=== PATIENT | male | born 1955 | race African-American/Black ===

== ENCOUNTER 2016-07-11 23:58 | Emergency (ER) | payer MEDICARE ==
[2016-07-12 00:21] VITALS: TEMP 98.6
[2016-07-12] MEDS ORDERED: SODIUM CHLORIDE 0.9% 1,000 ML IV ONE (00:57)
[2016-07-12 01:18] LABS: Basophils % (A) 0 %; CH 30.1; CHCM 33.2; Eosinophils # (A) 0.2 k/uL (0-0.7); Eosinophils % (A) 2 %; HDW 2.71; HGB 13.2 gm/dL (13.0-17.5); Luc # (Auto) 0.17; Luc % (Auto) 2; Lymphocytes # (A) 1.8 k/uL (1.0-4.8); Lymphocytes % (A) 19 %; MCH 30.9 pg (25.0-35.0); MCHC 33.9 g/dL (31.0-37.0); MCV 91.1 fL (80.0-100.0); Mean Platelet Volume 7.7; Monocytes # (A) 0.8 k/uL (0-1.0); Monocytes % (A) 9 %; Neutrophils # (A) 6.5 k/uL (1.3-7.7); Neutrophils % (A) 68 %; RBC 4.29 m/uL (4.30-5.90); RDW 13.2 % (11.5-15.5); WBC 9.5 k/uL (3.8-10.6); WBC (Perox) 9.42
[2016-07-12] MEDS ORDERED: PHENYTOIN SODIUM INJ 50 MG/ML 2 ML VIAL IVP STA (01:19)
[2016-07-12 01:27] LABS: ALT 25 U/L (21-72); AST 16 U/L (17-59); Acetaminophen <10.0 ug/mL; Alcohol <10 mg/dL; Alkaline Phosphatase 77 U/L (38-126); Anion Gap 7 mmol/L; Blood Urea Nitrogen 14 mg/dL (9-20); Calcium 9.3 mg/dL (8.4-10.2); Carbon Dioxide 26 mmol/L (22-30); Chloride 107 mmol/L (98-107); Glucose 105 mg/dL (74-99); Non-African American GFR(MDRD) >60 (>60 ml/min/1.73 sqM); Potassium 4.1 mmol/L (3.5-5.1); Salicylate <1.0 mg/dL; Sodium 140 mmol/L (137-145); Total Bilirubin 0.3 mg/dL (0.2-1.3); Total Protein 6.6 g/dL (6.3-8.2)
--- NOTE | 2016-07-12 02:02 | ED ---
Seizure HPI - General Chief Complaint: Seizure Stated Complaint: Seizure Time Seen by Provider: 07/12/16 00:49 Source: patient, family, RN notes reviewed Mode of arrival: wheelchair Limitations: no limitations - History of Present Illness Initial Comments: Patient is 61-year-old male presents to the emergency room for evaluation of seizure. Patient does state that he had a history of recurrent seizures. Patient states his last seizure was 2 years ago. Patient states he used to follow-up with Dr. Antunez, his neurologist. Patient states that he stopped taking his medications because he was no longer was having seizures. Patient states used to be on Keppra and Tegretol. Patient states that he hasn't seen his neurologist in about 2 years. Patient's states around 11:00 last evening she woke up to patient seizing in the bed. His states that the seizure stopped and then he had a second seizure immediately following. Patient 's states that the 2 seizures lasted a total of 3 minutes. Patient states he does not remember the seizures. Patient's states he was very confused afterwards. Patient denies any current headache, dizziness, changes in vision, changes in hearing, chest pain, shortness of breath, abdominal pain, nausea, vomiting, numbness or tingling extremities, weakness. Patient denies recent illnesses. Patient denies cough, fevers or chills. Patient's does state that patient stares at a computer screen multiple hours during the day. Patient 's states that he was told a few years ago to not stare the computer for long time which could cause a seizure. Patient denies alcohol use or illicit drug use. Patient denies being on any medications. - Related Data Previous Rx's Medication Instructions Recorded levETIRAcetam [Keppra] 500 mg PO BID 14 Days 07/12/16 Allergies Allergy/AdvReac Type Severity Reaction Status Date / Time No Known Allergies Allergy Verified 07/12/16 00:21 Review of Systems ROS Statement: Those systems with pertinent positive or pertinent negative responses have been documented in the HPI. ROS Other: All systems not noted in ROS Statement are negative. Past Medical History Past Medical History: Osteoarthritis (OA), Seizure Disorder Additional Past Medical History / Comment(s): ARTHRITIS History of Any Multi-Drug Resistant Organisms: None Reported Past Surgical History: Appendectomy, Orthopedic Surgery Additional Past Surgical History / Comment(s): 2 DISC BACK SURGERIES, CARPAL TUNNEL SRUGERY Past Anesthesia/Blood Transfusion Reactions: No Reported Reaction Past Psychological History: No Psychological Hx Reported Smoking Status: Current every day smoker Past Alcohol Use History: None Reported Past Drug Use History: None Reported Additional Drug Use History / Comment(s): PT STATES SMOKES 1.2 PACK A DAY - Past Family History Mother Additional Family Medical History / Comment(s): PACEMAKER General Exam - General Exam Comments Initial Comments: Sitting in exam room, no acute distress. Limitations: no limitations General appearance: alert, in no apparent distress Head exam: Present: atraumatic, normocephalic, normal inspection Eye exam: Present: normal appearance, PERRL, EOMI Pupils: Present: normal accommodation ENT exam: Present: normal exam Neck exam: Present: normal inspection Respiratory exam: Present: normal lung sounds bilaterally. Absent: respiratory distress Cardiovascular Exam: Present: regular rate, normal rhythm, normal heart sounds Extremities exam: Present: normal inspection Back exam: Present: normal inspection Neurological exam: Present: alert, oriented X3, CN II-XII intact, normal gait Expanded Patient oriented to: Present: person, place, time Speech: Present: fluid speech Cranial nerves: EOM's Intact: Normal, Facial Sensation: Normal Sensory exam: Upper Extremity Light Touch: Normal, Lower Extremity Light Touch: Normal Motor strength exam: RUE: 5, LUE: 5, RLE: 5, LLE: 5 Eye Response: (4) open spontaneously Motor Response: (6) obeys commands Verbal Response: (5) oriented Psychiatric exam: Present: normal affect, normal mood Skin exam: Present: warm, dry, intact, normal color. Absent: rash Course Vital Signs 07/12/16 00:13 Temperature 98.6 F Pulse Rate 90 Respiratory 16 Rate Blood Pressure 104/63 O2 Sat by Pulse 99 Oximetry Medical Decision Making - Medical Decision Making Patient is a 61-year-old male presents emergency room for evaluation of seizure. Patient did have a history of seizures but hasn't had a seizure in 2 years. Patient states he's been Brought and Tegretol. Patient was given Keppra in the emergency room. Patient had no seizures while he was here. Labs show normal concerning or abnormal findings. Will send patient home with Keppra and advised him to follow-up with his neurologist. Patient advised to not drive until follow-up with neurologist. Patient states he understands everything that was discussed with him. Return parameters discussed. Case discussed with Dr. Alston. - Lab Data Result diagrams: 07/12/16 01:00 07/12/16 01:00 Lab Results 07/12/16 07/12/16 07/12/16 Range/Units 01:00 01:00 02:52 WBC 9.5 (3.8-10.6) k/uL RBC 4.29 L (4.30-5.90) m/uL Hgb 13.2 (13.0-17.5) gm/dL Hct 39.0 (39.0-53.0) % MCV 91.1 (80.0-100.0) fL MCH 30.9 (25.0-35.0) pg MCHC 33.9 (31.0-37.0) g/dL RDW 13.2 (11.5-15.5) % Plt Count 147 L (150-450) k/uL Neutrophils % 68 % Lymphocytes % 19 % Monocytes % 9 % Eosinophils % 2 % Basophils % 0 % Neutrophils # 6.5 (1.3-7.7) k/uL Lymphocytes # 1.8 (1.0-4.8) k/uL Monocytes # 0.8 (0-1.0) k/uL Eosinophils # 0.2 (0-0.7) k/uL Basophils # 0.0 (0-0.2) k/uL Sodium 140 (137-145) mmol/L Potassium 4.1 (3.5-5.1) mmol/L Chloride 107 (98-107) mmol/L Carbon Dioxide 26 (22-30) mmol/L Anion Gap 7 mmol/L BUN 14 (9-20) mg/dL Creatinine 1.10 (0.66-1.25) mg/dL Est GFR (MDRD) Af Amer >60 (>60 ml/min/1.73 sqM) Est GFR (MDRD) Non-Af >60 (>60 ml/min/1.73 sqM) Glucose 105 H (74-99) mg/dL Calcium 9.3 (8.4-10.2) mg/dL Total Bilirubin 0.3 (0.2-1.3) mg/dL AST 16 L (17-59) U/L ALT 25 (21-72) U/L Alkaline Phosphatase 77 (38-126) U/L Total Protein 6.6 (6.3-8.2) g/dL Albumin 3.8 (3.5-5.0) g/dL Urine Color Light Yellow Urine Appearance Clear (Clear) Urine pH 6.5 (5.0-8.0) Ur Specific [place] 1.009 (1.001-1.035) Urine Protein Negative (Negative) Urine Glucose (UA) Negative (Negative) Urine Ketones Negative (Negative) Urine Blood Negative (Negative) Urine Nitrite Negative (Negative) Urine Bilirubin Negative (Negative) Urine Urobilinogen 2.0 (<2.0) mg/dL Ur Leukocyte Esterase Negative (Negative) Salicylates <1.0 mg/dL Urine Opiates Screen Not Detected (NotDetected) Ur Oxycodone Screen Not Detected (NotDetected) Urine Methadone Screen Not Detected (NotDetected) Ur Propoxyphene Screen Not Detected (NotDetected) Acetaminophen <10.0 ug/mL Ur Barbiturates Screen Not Detected (NotDetected) U Tricyclic Antidepress Not Detected (NotDetected) Ur Phencyclidine Scrn Not Detected (NotDetected) Ur Amphetamines Screen Not Detected (NotDetected) U Methamphetamines Scrn Not Detected (NotDetected) U Benzodiazepines Scrn Not Detected (NotDetected) Urine Cocaine Screen Not Detected (NotDetected) U Marijuana (THC) Screen Not Detected (NotDetected) Serum Alcohol <10 mg/dL 07/12/16 02:16 Normal sinus rhythm, ventricular rate 91 bpm, TX interval 164 ms, QRS duration 90 ms, QT/QTC 382/469 ms Disposition Clinical Impression: Seizure Disposition: HOME SELF-CARE Condition: Good Instructions: Recurrent Seizures in Adults (ED) Additional Instructions: Take Keppra as directed. Please follow-up with primary care provider or neurologist in 24-48 hours. If any new symptom arises or symptoms worsen, return to ER as soon as possible. Prescriptions: levETIRAcetam [Keppra] 500 mg PO BID 14 Days Referrals: Promise Dumas MD [Primary Care Provider] - 1-2 days Tamie Antunez MD [STAFF PHYSICIAN] - 1-2 days Time of Disposition: 03:25
[2016-07-12 03:11] LABS: Appearance,Urine Clear (Clear); Bilirubin,Urine Negative (Negative); Glucose,Urine (UA) Negative (Negative); Ketones,Urine Negative (Negative); Leukocyte Esterase,Urine Negative (Negative); Nitrite,Urine Negative (Negative); PH, Urine 6.5 (5.0-8.0); Protein,Urine Negative (Negative); Specific Gravity,Urine 1.009 (1.001-1.035); UA Billing (MACRO vs. MICRO) CHEM
[2016-07-12 03:39] VITALS: BP 110/68; PULSE 67; RESP 18
== END 2016-07-12 03:38 | disposition home or self-care (01) ==
LOC: EC 23:58
DX: G40.909 Epilepsy, unspecified, not intractable, without status epilepticus (principal); Z79.899 Other long term (current) drug therapy
CPT/HCPCS: 99284; 96374; 36415; 93005; 80053; 85025; 81003; 80306; 83520 ×2; 80320; J1165

== ENCOUNTER 2016-08-06 00:42 | Emergency (ER) | payer MEDICARE ==
[2016-08-06 00:56] VITALS: RESP 18; TEMP 98.7
[2016-08-06] MEDS ORDERED: levETIRAcetam 500 MG TAB PO STA (01:02)
[2016-08-06] MEDS ORDERED: LORazepam 2 MG/ML SYRINGE IV STA (01:03)
--- NOTE | 2016-08-06 01:04 | ED ---
General Adult HPI - General Chief complaint: Seizure Stated complaint: Seizures Time Seen by Provider: 08/06/16 00:58 Source: patient, EMS, RN notes reviewed Mode of arrival: EMS Limitations: no limitations - History of Present Illness Initial comments: patient is a pleasant 61-year-old male presenting to the emergency Department with seizure. Patient has a seizure history. Patient was seizure free for 2 years and stopped his medication. Patient had a seizure around a month ago and restarted the medication. Patient discontinued this again around 3 days ago. Patient had 2 seizures today each lasting a couple of minutes. Patient is symptom-free at this time. No injury. No recent illness.seizure was generalized. - Related Data Previous Rx's Medication Instructions Recorded levETIRAcetam [Keppra] 500 mg PO BID 14 Days 07/12/16 Allergies Allergy/AdvReac Type Severity Reaction Status Date / Time No Known Allergies Allergy Verified 08/06/16 00:57 Review of Systems ROS Statement: Those systems with pertinent positive or pertinent negative responses have been documented in the HPI. ROS Other: All systems not noted in ROS Statement are negative. Constitutional: Denies: fever Eyes: Denies: eye pain ENT: Denies: ear pain Respiratory: Denies: cough, dyspnea Cardiovascular: Denies: chest pain Endocrine: Denies: fatigue Gastrointestinal: Denies: abdominal pain Genitourinary: Denies: dysuria Musculoskeletal: Denies: back pain Skin: Denies: rash Neurological: Denies: headache Past Medical History Past Medical History: Osteoarthritis (OA), Seizure Disorder Additional Past Medical History / Comment(s): ARTHRITIS History of Any Multi-Drug Resistant Organisms: None Reported Past Surgical History: Appendectomy Additional Past Surgical History / Comment(s): 2 DISC BACK SURGERIES, CARPAL TUNNEL SRUGERY Past Anesthesia/Blood Transfusion Reactions: No Reported Reaction Past Psychological History: No Psychological Hx Reported Smoking Status: Current every day smoker Past Alcohol Use History: None Reported Past Drug Use History: None Reported Additional Drug Use History / Comment(s): PT STATES SMOKES 1.2 PACK A DAY - Past Family History Mother Additional Family Medical History / Comment(s): PACEMAKER General Exam Limitations: no limitations General appearance: alert, in no apparent distress Head exam: Present: atraumatic Eye exam: Present: normal appearance, PERRL, EOMI. Absent: nystagmus ENT exam: Present: normal oropharynx Neck exam: Present: normal inspection. Absent: tenderness Respiratory exam: Present: normal lung sounds bilaterally Cardiovascular Exam: Present: regular rate, normal rhythm GI/Abdominal exam: Present: soft. Absent: tenderness Extremities exam: Present: normal inspection, full ROM Neurological exam: Present: alert, oriented X3, CN II-XII intact. Absent: motor sensory deficit Expanded Cranial nerves: EOM's Intact: Normal Motor strength exam: RUE: 5, LUE: 5, RLE: 5, LLE: 5 Eye Response: (4) open spontaneously Motor Response: (6) obeys commands Verbal Response: (5) oriented Psychiatric exam: Present: normal affect, normal mood Skin exam: Present: normal color Course Vital Signs 08/06/16 00:45 Temperature 98.7 F Pulse Rate 80 Respiratory 18 Rate Blood Pressure 107/70 O2 Sat by Pulse 100 Oximetry Medical Decision Making - Medical Decision Making Patient resting comfortably in bed. Patient remained symptom-free. Patient comfortable with discharge home. Patient and family updated on results and need for follow-up. Also updated on need to continue taking Keppra without interruption.patient states he does have Keppra at home. - Lab Data Result diagrams: 08/06/16 00:48 08/06/16 00:48 Lab Results 08/06/16 08/06/16 Range/Units 00:48 00:48 WBC 10.7 H (3.8-10.6) k/uL RBC 4.36 (4.30-5.90) m/uL Hgb 13.0 (13.0-17.5) gm/dL Hct 41.0 (39.0-53.0) % MCV 94.1 (80.0-100.0) fL MCH 29.8 (25.0-35.0) pg MCHC 31.7 (31.0-37.0) g/dL RDW 13.2 (11.5-15.5) % Plt Count 138 L (150-450) k/uL Neutrophils % 63 % Lymphocytes % 26 % Monocytes % 6 % Eosinophils % 2 % Basophils % 1 % Neutrophils # 6.7 (1.3-7.7) k/uL Lymphocytes # 2.8 (1.0-4.8) k/uL Monocytes # 0.7 (0-1.0) k/uL Eosinophils # 0.2 (0-0.7) k/uL Basophils # 0.1 (0-0.2) k/uL Sodium 141 (137-145) mmol/L Potassium 4.0 (3.5-5.1) mmol/L Chloride 110 H (98-107) mmol/L Carbon Dioxide 22 (22-30) mmol/L Anion Gap 9 mmol/L BUN 22 H (9-20) mg/dL Creatinine 1.00 (0.66-1.25) mg/dL Est GFR (MDRD) Af Amer >60 (>60 ml/min/1.73 sqM) Est GFR (MDRD) Non-Af >60 (>60 ml/min/1.73 sqM) Glucose 120 H (74-99) mg/dL Calcium 9.1 (8.4-10.2) mg/dL Magnesium 1.9 (1.6-2.3) mg/dL Total Bilirubin 0.4 (0.2-1.3) mg/dL AST 13 L (17-59) U/L ALT 18 L (21-72) U/L Alkaline Phosphatase 78 (38-126) U/L Total Protein 6.5 (6.3-8.2) g/dL Albumin 3.7 (3.5-5.0) g/dL Disposition Clinical Impression: Generalized seizure Disposition: HOME SELF-CARE Condition: Stable Instructions: Recurrent Seizures in Adults (ED) Additional Instructions: please continue to take Keppra, do not miss any doses. Return for seizures, worsening symptoms or other concerns. Referrals: Promise Dumas MD [Primary Care Provider] - 1-2 days Franklin Antunez MD [STAFF PHYSICIAN] - 1-2 days Dayron Hardwick MD [STAFF PHYSICIAN] - 1-2 days Time of Disposition: 01:58
[2016-08-06 01:12] LABS: Basophils # (A) 0.1 k/uL (0-0.2); Basophils % (A) 1 %; CHCM 32.1; Eosinophils # (A) 0.2 k/uL (0-0.7); Eosinophils % (A) 2 %; Luc # (Auto) 0.23; Luc % (Auto) 2; Lymphocytes # (A) 2.8 k/uL (1.0-4.8); Lymphocytes % (A) 26 %; MCH 29.8 pg (25.0-35.0); MCHC 31.7 g/dL (31.0-37.0); MCV 94.1 fL (80.0-100.0); Mean Platelet Volume 7.4; Monocytes # (A) 0.7 k/uL (0-1.0); Monocytes % (A) 6 %; Neutrophils # (A) 6.7 k/uL (1.3-7.7); Neutrophils % (A) 63 %; RBC 4.36 m/uL (4.30-5.90); RDW 13.2 % (11.5-15.5); WBC 10.7 k/uL (3.8-10.6); WBC (Perox) 10.35
[2016-08-06 01:30] LABS: ALT 18 U/L (21-72); AST 13 U/L (17-59); Alkaline Phosphatase 78 U/L (38-126); Anion Gap 9 mmol/L; Blood Urea Nitrogen 22 mg/dL (9-20); Calcium 9.1 mg/dL (8.4-10.2); Carbon Dioxide 22 mmol/L (22-30); Chloride 110 mmol/L (98-107); Glucose 120 mg/dL (74-99); Magnesium 1.9 mg/dL (1.6-2.3); Non-African American GFR(MDRD) >60 (>60 ml/min/1.73 sqM); Sodium 141 mmol/L (137-145); Total Bilirubin 0.4 mg/dL (0.2-1.3); Total Protein 6.5 g/dL (6.3-8.2)
[2016-08-06 02:09] VITALS: BP 111/71; PULSE 68
== END 2016-08-06 02:10 | disposition home or self-care (01) ==
LOC: EC 00:42
DX: G40.909 Epilepsy, unspecified, not intractable, without status epilepticus (principal); F17.200 Nicotine dependence, unspecified, uncomplicated
CPT/HCPCS: 36415; 80053; 83735; 85025; 99284; 96374; J2060

== ENCOUNTER 2018-06-30 18:27 | Emergency (ER) | payer MEDICARE ==
--- NOTE | 2018-06-30 19:17 | XR ---
EXAMINATION TYPE: XR chest 2V DATE OF EXAM: 06/30/2018 COMPARISON: NONE HISTORY: Cough and congestion TECHNIQUE: Frontal and lateral views of the chest are obtained. FINDINGS: Heart and mediastinum are normal. Lungs are clear. Diaphragm is normal. Bony thorax appear s normal. IMPRESSION: Normal chest.
--- NOTE | 2018-06-30 20:10 | ED ---
URI HPI - General Chief Complaint: Upper Respiratory Infection Stated Complaint: congestion Time Seen by Provider: 06/30/18 19:24 Source: patient, RN notes reviewed, old records reviewed Mode of arrival: ambulatory Limitations: no limitations - History of Present Illness Initial Comments: Patient is a 63-year-old male presents emergency with complaints of upper respiratory congestion for the past month. He is fighting infections off and on. Continue [id number] decongestants. He states that he's had no significant relief. Patient denies any nausea or vomiting, abdominal pain. Patient has a history of smoking. No diagnosis of COPD. He reports that a slight cough. - Related Data Previous Rx's Medication Instructions Recorded levETIRAcetam [Keppra] 500 mg PO BID 14 Days tab 07/12/16 Albuterol Inhaler [Ventolin Hfa 1 - 2 puff INHALATION RT-Q6H PRN 06/30/18 Inhaler] #1 inhaler Azithromycin [Zithromax] 250 mg PO DIRECTED #6 tab 06/30/18 guaiFENesin-DM 600/30MG [Mucinex 1 each PO Q12HR #20 tab.er.12h 06/30/18 Dm] methylPREDNISolone Dose Pack 4 mg PO DIRECTED #21 package 06/30/18 [Medrol Dose Pack] Allergies Allergy/AdvReac Type Severity Reaction Status Date / Time No Known Allergies Allergy Verified 06/30/18 18:58 Review of Systems ROS Statement: Those systems with pertinent positive or pertinent negative responses have been documented in the HPI. ROS Other: All systems not noted in ROS Statement are negative. Past Medical History Past Medical History: Osteoarthritis (OA), Seizure Disorder Additional Past Medical History / Comment(s): ARTHRITIS History of Any Multi-Drug Resistant Organisms: None Reported Past Surgical History: Appendectomy Additional Past Surgical History / Comment(s): 2 DISC BACK SURGERIES, CARPAL TUNNEL SRUGERY Past Anesthesia/Blood Transfusion Reactions: No Reported Reaction Past Psychological History: No Psychological Hx Reported Smoking Status: Current every day smoker Past Alcohol Use History: None Reported Past Drug Use History: None Reported - Past Family History Mother Additional Family Medical History / Comment(s): PACEMAKER General Exam - General Exam Comments Initial Comments: 53-year-old [place] male. No distress. Patient appears well Limitations: no limitations Head exam: Present: atraumatic, normocephalic, normal inspection Eye exam: Present: normal appearance, PERRL, EOMI. Absent: scleral icterus, conjunctival injection, periorbital swelling ENT exam: Present: normal exam, mucous membranes moist Neck exam: Present: normal inspection. Absent: tenderness, meningismus, lymphadenopathy Respiratory exam: Present: normal lung sounds bilaterally. Absent: respiratory distress, wheezes, rales, rhonchi, stridor Cardiovascular Exam: Present: regular rate, normal rhythm, normal heart sounds. Absent: systolic murmur, diastolic murmur, rubs, gallop, clicks GI/Abdominal exam: Present: soft, normal bowel sounds. Absent: distended, tenderness, guarding, rebound, rigid Extremities exam: Present: normal inspection, full ROM, normal capillary refill. Absent: tenderness, pedal edema, joint swelling, calf tenderness Back exam: Present: normal inspection Neurological exam: Present: alert, oriented X3, CN II-XII intact Psychiatric exam: Present: normal affect, normal mood Skin exam: Present: warm, dry, intact, normal color. Absent: rash Course Vital Signs 06/30/18 18:55 Temperature 98.2 F Pulse Rate 72 Respiratory 16 Rate Blood Pressure 131/78 O2 Sat by Pulse 99 Oximetry Medical Decision Making - Medical Decision Making Mother 63-year-old male persist return to the 1 month of cough congestion and upper respiratory symptoms. At this time Patient has clear lungs. He does have some rhinorrhea noted. States he's had a slight cough and off-and-on fevers. Vital signs are stable in ED. Influenza test is negative. Chest x-ray is normal. Given symptoms patient's had for over a month we'll treat the Patient this time for azithromycin and steroids and decongestant medicine. Discussed using inhalers well withDx of bronchitis nad sinusitsi. All questions answered return parameters were discussed. - Lab Data Lab Results 06/30/18 Range/Units 18:59 Influenza Type A RNA Not Detected (Not Detectd) Influenza Type B (PCR) Not Detected (Not Detectd) Disposition Clinical Impression: URI (upper respiratory infection) Disposition: HOME SELF-CARE Condition: Good Instructions (If sedation given, give patient instructions): Upper Respiratory Infection (ED) Additional Instructions: Denies rest, remain hydrated. Take medications as prescribed. Follow-up with PCP in the next week if symptoms continue to persist. Prescriptions: methylPREDNISolone Dose Pack [Medrol Dose Pack] 4 mg PO DIRECTED #21 package guaiFENesin-DM 600/30MG [Mucinex Dm] 1 each PO Q12HR #20 tab.er.12h Albuterol Inhaler [Ventolin Hfa Inhaler] 1 - 2 puff INHALATION RT-Q6H PRN #1 inhaler PRN Reason: Shortness Of Breath Azithromycin [Zithromax] 250 mg PO DIRECTED #6 tab Is patient prescribed a controlled substance at d/c from ED?: No Referrals: Promise Dumas MD [Primary Care Provider] - 1-2 days Time of Disposition: 20:08
[2018-06-30 20:26] VITALS: BP 147/82; PULSE 85; RESP 16; TEMP 98.5
== END 2018-06-30 20:22 | disposition home or self-care (01) ==
LOC: EC 18:27
DX: J06.9 Acute upper respiratory infection, unspecified (principal); F17.200 Nicotine dependence, unspecified, uncomplicated
CPT/HCPCS: 71046; 87502; 99284

== ENCOUNTER 2019-04-12 10:48 | Emergency (ER) | payer MEDICARE ==
[2019-04-12 11:07] VITALS: BP 97/63; PULSE 90; RESP 16; TEMP 97.3
[2019-04-12] MEDS ORDERED: MORPHINE SULFATE 4 MG/ML SYRINGE IVP STA (12:10)
--- NOTE | 2019-04-12 12:32 | ED ---
General Adult HPI - General Chief complaint: Back Pain/Injury Stated complaint: back pain & cold Time Seen by Provider: 04/12/19 11:05 Source: patient Mode of arrival: ambulatory Limitations: no limitations - History of Present Illness Initial comments: The patient is a 64-year-old male with past medical history of seizure disorder who presents to the emergency department with reported right-sided back pain. States it was present when he woke up this morning. It is described as a sharp shooting pain which is worse with movement and better with rest. He does take Motrin on a daily basis. He did take this medication and states it did not help the symptoms. He also has Clay at home however did not take one. He denies any radiating pain into his lower extremity. No numbness, tingling or weakness in his lower extremities. No difficulties with ambulation. Denies any saddle anesthesia. No bowel or bladder incontinence. Denies any dysuria, hematuria or difficult voiding. Denies diarrhea, constipation, melenic stools or hematochezia. No fevers or chills. No nausea or vomiting. No history of intravenous drug use. No previous history of cancer. There are no alleviating, precipitating or modifying factors - Related Data Previous Rx's Medication Instructions Recorded levETIRAcetam [Keppra] 500 mg PO BID 14 Days tab 07/12/16 Albuterol Inhaler [Ventolin Hfa 1 - 2 puff INHALATION RT-Q6H PRN 06/30/18 Inhaler] #1 inhaler Azithromycin [Zithromax] 250 mg PO DIRECTED #6 tab 06/30/18 guaiFENesin-DM 600/30MG [Mucinex 1 each PO Q12HR #20 tab.er.12h 06/30/18 Dm] methylPREDNISolone Dose Pack 4 mg PO DIRECTED #21 package 06/30/18 [Medrol Dose Pack] Albuterol Sulfate [Proair Hfa] 1 - 2 puff INHALATION Q4HR PRN #1 04/12/19 inhaler Doxycycline Hyclate 100 mg PO BID #20 tab 04/12/19 Methocarbamol [Robaxin-750] 750 mg PO TID PRN #15 tablet 04/12/19 Allergies Allergy/AdvReac Type Severity Reaction Status Date / Time No Known Allergies Allergy Verified 04/12/19 11:07 Review of Systems ROS Statement: Those systems with pertinent positive or pertinent negative responses have been documented in the HPI. ROS Other: All systems not noted in ROS Statement are negative. Past Medical History Past Medical History: Osteoarthritis (OA), Seizure Disorder Additional Past Medical History / Comment(s): ARTHRITIS History of Any Multi-Drug Resistant Organisms: None Reported Past Surgical History: Appendectomy Additional Past Surgical History / Comment(s): 2 DISC BACK SURGERIES, CARPAL TUNNEL SRUGERY Past Anesthesia/Blood Transfusion Reactions: No Reported Reaction Past Psychological History: No Psychological Hx Reported Smoking Status: Current every day smoker Past Alcohol Use History: None Reported Past Drug Use History: None Reported - Past Family History Mother Additional Family Medical History / Comment(s): PACEMAKER General Exam Limitations: no limitations General appearance: alert, in no apparent distress Head exam: Present: atraumatic, normocephalic, normal inspection Eye exam: Present: normal appearance, PERRL, EOMI. Absent: scleral icterus, conjunctival injection, periorbital swelling ENT exam: Present: normal exam, mucous membranes moist Neck exam: Present: normal inspection. Absent: tenderness, meningismus, lymphadenopathy Respiratory exam: Present: normal lung sounds bilaterally. Absent: respiratory distress, wheezes, rales, rhonchi, stridor Cardiovascular Exam: Present: regular rate, normal rhythm, normal heart sounds. Absent: systolic murmur, diastolic murmur, rubs, gallop, clicks GI/Abdominal exam: Present: soft, normal bowel sounds. Absent: distended, te nderness, guarding, rebound, rigid Extremities exam: Present: normal inspection, full ROM, normal capillary refill. Absent: tenderness, pedal edema, joint swelling, calf tenderness Back exam: Present: normal inspection, tenderness (right paraspinal muscles from L2-5. 5/5 muscle strength in the bilaterally lower extremities including hip flexors, knee extensors, ankle and great toe dorsiflexors and foot plantarflexors. Intact distal sensation. 2+ DP and PT pulses. ). Absent: rash noted Neurological exam: Present: alert, oriented X3, CN II-XII intact Psychiatric exam: Present: normal affect, normal mood Skin exam: Present: warm, dry, intact, normal color. Absent: rash Course Vital Signs 04/12/19 11:05 Temperature 97.3 F L Pulse Rate 90 Respiratory 16 Rate Blood Pressure 97/63 O2 Sat by Pulse 98 Oximetry Medical Decision Making - Medical Decision Making Upon arrival the patient is placed into room 21. A thorough history and physical exam was performed. The patient does present with reproducible back pain. I did provide him with a dose of morphine as he is requesting something stronger than his [place]. The patient was sent for a lumbosacral x-ray. He does provide a urine sample which is dark in coloration and does have some stones n oted in it. Because of this I did order a urinalysis, laboratory studies and a CT of the patient's abdomen without contrast. Heart rate is 70 with blood cell count of 22.9. Urinalysis shows trace ketones, trace leukocyte esterase. Lumbosacral x-ray done states no acute osseous lesion with mild degenerative changes. CT the patient's abdomen and pelvis demonstrates mildly dilated and fluid-filled loops of small bowel. Constipation. No hydronephrosis or nephrolithiasis. Patchy ground glass opacity within the right lower lobe. I did revaluate the patient he has improvement in his pain. He does report that he has had a nonproductive cough. Because of the patient's elevated white blood cell count with signs of pneumonia on CT I did recommend treatment with antibiotics. The patient was prescribed T-segment for pneumonia. I will also give him a prescription for Robaxin. He is to follow-up with Dr. Dumas in 2 to 4 days. Return to the emergency room for any new or worsening symptoms. Patient was in agreement treatment plan discharge home in stable condition - Lab Data Result diagrams: 04/12/19 12:20 04/12/19 12:20 Lab Results 04/12/19 04/12/19 04/12/19 Range/Units 12:20 12:20 12:20 WBC 22.9 H (3.8-10.6) k/uL RBC 4.67 (4.30-5.90) m/uL Hgb 13.9 (13.0-17.5) gm/dL Hct 42.6 (39.0-53.0) % MCV 91.3 (80.0-100.0) fL MCH 29.7 (25.0-35.0) pg MCHC 32.6 (31.0-37.0) g/dL RDW 12.3 (11.5-15.5) % Plt Count 297 (150-450) k/uL Neutrophils % 88 % Lymphocytes % 4 % Monocytes % 6 % Eosinophils % 0 % Basophils % 0 % Neutrophils # 20.2 H (1.3-7.7) k/uL Lymphocytes # 1.0 (1.0-4.8) k/uL Monocytes # 1.3 H (0-1.0) k/uL Eosinophils # 0.1 (0-0.7) k/uL Basophils # 0.1 (0-0.2) k/uL Sodium 139 (137-145) mmol/L Potassium 4.2 (3.5-5.1) mmol/L Chloride 103 (98-107) mmol/L Carbon Dioxide 24 (22-30) mmol/L Anion Gap 12 mmol/L BUN 20 (9-20) mg/dL Creatinine 1.18 (0.66-1.25) mg/dL Est GFR (CKD-EPI)AfAm 74 (>60 ml/min/1.73 sqM) Est GFR (CKD-EPI)NonAf 64 (>60 ml/min/1.73 sqM) Glucose 108 H (74-99) mg/dL Calcium 9.7 (8.4-10.2) mg/dL Total Bilirubin 0.8 (0.2-1.3) mg/dL AST 22 (17-59) U/L ALT 14 (4-49) U/L Alkaline Phosphatase 115 (38-126) U/L Total Protein 7.8 (6.3-8.2) g/dL Albumin 4.1 (3.5-5.0) g/dL Urine Color Yellow Urine Appearance Cloudy (Clear) Urine pH 6.0 (5.0-8.0) Ur Specific [place] 1.034 (1.001-1.035) Urine Protein 1+ H (Negative) Urine Glucose (UA) Negative (Negative) Urine Ketones Trace H (Negative) Urine Blood Negative (Negative) Urine Nitrite Negative (Negative) Urine Bilirubin Negative (Negative) Urine Urobilinogen 8.0 (<2.0) mg/dL Ur Leukocyte Esterase Trace H (Negative) Urine RBC 2 (0-5) /hpf Urine WBC 3 (0-5) /hpf Hyaline Casts 8 H (0-2) /lpf Urine Mucus Many H (None) /hpf Disposition Clinical Impression: Leukocytosis, CAP (community acquired pneumonia), Lumbar back pain Disposition: HOME SELF-CARE Condition: Stable Instructions (If sedation given, give patient instructions): Acute Low Back Pain (ED), Bacterial Pneumonia (ED) Additional Instructions: Please follow up with Dr. Dumas in 2-4 days. Return to the emergency room for any new or worsening symptoms Prescriptions: Doxycycline Hyclate 100 mg PO BID #20 tab Albuterol Sulfate [Proair Hfa] 1 - 2 puff INHALATION Q4HR PRN #1 inhaler PRN Reason: difficulty in breathing Methocarbamol [Robaxin-750] 750 mg PO TID PRN #15 tablet PRN Reason: Pain Is patient prescribed a controlled substance at d/c from ED?: No Referrals: Promise Dumas MD [Primary Care Provider] - 1-2 days Time of Disposition: 13:29
--- NOTE | 2019-04-12 12:33 | XR ---
EXAMINATION TYPE: XR lumbar spine 2 or 3V , 3 VIEWS DATE OF EXAM ORDERED: 04/12/2019 HISTORY: back pain. COMPARISON: None. FINDINGS: Vertebral body height and alignment are maintained. There is no spondylolysis or spondylol isthesis. There is minor hypertrophic spondylosis at L4-5. The pedicles are intact. IMPRESSION: 1. NO ACUTE OSSEOUS LESION. 2. MILD DEGENERATIVE CHANGE.
[2019-04-12 12:42] LABS: HCT 42.6 % (39.0-53.0); HGB 13.9 gm/dL (13.0-17.5); MCH 29.7 pg (25.0-35.0); MCHC 32.6 g/dL (31.0-37.0); MCV 91.3 fL (80.0-100.0); RBC 4.67 m/uL (4.30-5.90); WBC 22.9 k/uL (3.8-10.6)
[2019-04-12 12:43] LABS: Basophils # (A) 0.1 k/uL (0-0.2); Basophils % (A) 0 %; Eosinophils # (A) 0.1 k/uL (0-0.7); Eosinophils % (A) 0 %; Lymphocytes % (A) 4 %; Mean Platelet Volume 7.6; Monocytes # (A) 1.3 k/uL (0-1.0); Monocytes % (A) 6 %; Neutrophils # (A) 20.2 k/uL (1.3-7.7); Neutrophils % (A) 88 %; Platelet Count 297 k/uL (150-450); RDW 12.3 % (11.5-15.5)
[2019-04-12 12:52] LABS: Albumin 4.1 g/dL (3.5-5.0); Calcium 9.7 mg/dL (8.4-10.2); Potassium 4.2 mmol/L (3.5-5.1); Total Bilirubin 0.8 mg/dL (0.2-1.3); Total Protein 7.8 g/dL (6.3-8.2)
[2019-04-12 12:54] LABS: Appearance,Urine Cloudy (Clear); Bilirubin,Urine Negative (Negative); Blood,Urine Negative (Negative); Color,Urine Yellow; Glucose,Urine (UA) Negative (Negative); Hyaline Casts,Urine 8 /lpf (0-2); Ketones,Urine Trace (Negative); Leukocyte Esterase,Urine Trace (Negative); Mucus,Urine Many /hpf; Nitrite,Urine Negative (Negative); Protein,Urine 1+ (Negative); RBC,Urine 2 /hpf (0-5); Specific Gravity,Urine 1.034 (1.001-1.035); WBC,Urine 3 /hpf (0-5)
--- NOTE | 2019-04-12 13:07 | CT ---
EXAMINATION TYPE: CT abdomen pelvis wo con DATE OF EXAM: 04/12/2019 COMPARISON: NONE HISTORY: Right sided pain today. CT DLP: 325.2 mGycm Automated exposure control for dose reduction was used. FINDINGS: There is some atelectasis at both lung bases. There is some groundglass opacity in the righ t lower lobe which May represent early pneumonia. There is no pleural or pericardial fluid. The heart is not enlarged. Within the abdomen, the liver, spleen and gallbladder are normal. There is a small hiatal hernia present. Both adrenal glands are normal. 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 There is no evidence of nephrolithiasis or hydronephrosis. The pancreas is not well-visualized. There is no significant retroperitoneal, inguinal or iliac adenopathy. The bladder is unremarkable. There is a large amount of stool within the rectum and sigmoid colon. There is no significant diverti cular change and there is no radiographic evidence of diverticulitis. The appendix is not visualized with certainty. Small bowel loops are mildly prominent. Several air-fluid levels are noted within the small bowel. Th is may reflect enteritis. There is no free fluid and no free air. IMPRESSION: 1. MILDLY DILATED AND FLUID-FILLED LOOPS OF SMALL BOWEL MAY REFLECT ENTERITIS. 2. CONSTIPATION. 3. NO EVIDENCE OF HYDRONEPHROSIS OR NEPHROLITHIASIS. 4. ECTOPIC, PELVIC RIGHT KIDNEY. 5. PATCHY GROUNDGLASS OPACITY WITHIN THE RIGHT LOWER LOBE MAY REFLECT EARLY PNEUMONITIS OR DEVELOPING PNEUMONIA. 6. SMALL HIATAL HERNIA.
[2019-04-12] MEDS ORDERED: DOXYCYCLINE 100 MG CAP PO STA (13:26)
== END 2019-04-12 13:45 | disposition home or self-care (01) ==
LOC: EC 10:48
DX: M54.9 Dorsalgia, unspecified (principal); J18.9 Pneumonia, unspecified organism; D72.829 Elevated white blood cell count, unspecified; K59.00 Constipation, unspecified; F17.200 Nicotine dependence, unspecified, uncomplicated
CPT/HCPCS: 36415; 80053; 85025; 81001; 72100; 74176; 99284; 96374; J2270

== ENCOUNTER → 2019-05-02 | Outpatient (CLI) | payer MEDICARE ==
[2019-05-02 11:27] LABS: Basophils % (A) 0 %; Eosinophils # (A) 0.1 k/uL (0-0.7); Eosinophils % (A) 2 %; HCT 39.5 % (39.0-53.0); HGB 12.5 gm/dL (13.0-17.5); Hypochromasia Slight; Lymphocytes # (A) 1.7 k/uL (1.0-4.8); Lymphocytes % (A) 24 %; MCH 29.9 pg (25.0-35.0); MCHC 31.7 g/dL (31.0-37.0); MCV 94.2 fL (80.0-100.0); Mean Platelet Volume 8.5; Monocytes # (A) 0.5 k/uL (0-1.0); Monocytes % (A) 7 %; Neutrophils # (A) 4.7 k/uL (1.3-7.7); Neutrophils % (A) 64 %; Platelet Count 172 k/uL (150-450); RBC 4.19 m/uL (4.30-5.90); RDW 13.2 % (11.5-15.5); WBC 7.3 k/uL (3.8-10.6)
== END | disposition home or self-care (01) ==
LOC: LABWHC1 10:31
PROVIDERS: ATTEND Internal Medicine
DX: G40.909 Epilepsy, unspecified, not intractable, without status epilepticus (principal)
CPT/HCPCS: 36415; 80177; 85025

== ENCOUNTER 2019-09-25 15:10 | Emergency (ER) | payer MEDICARE ==
[2019-09-25 15:16] VITALS: RESP 18; TEMP 98.4
[2019-09-25] MEDS ORDERED: METOCLOPRAMIDE 5 MG/ML 2 ML VIAL IVP STA (15:37)
[2019-09-25] MEDS ORDERED: diphenhydrAMINE 50 MG/ML 1 ML VIAL IVP STA (15:37)
[2019-09-25] MEDS ORDERED: DEXAMETHASONE SOD PHOSPHATE 10 MG/ML 1 ML VIAL IV STA (15:37)
[2019-09-25] MEDS ORDERED: MAGNESIUM SULFATE-D5W PMX 1 GM in DEXTROSE/WATER 1 100ML.BAG IVPB ONE (15:37)
[2019-09-25] MEDS ORDERED: SODIUM CHLORIDE 0.9% 1,000 ML IV STA (15:37)
--- NOTE | 2019-09-25 15:48 | ED ---
Headache HPI - General Chief Complaint: Headache Stated Complaint: fall/seizure Time Seen by Provider: 09/25/19 15:15 Mode of arrival: ambulatory Limitations: no limitations - History of Present Illness Initial Comments: Patient is a 64-year-old male with past medical history of seizure disorder presents emergency room with reported headache. Patient states that he had a seizure on Saturday. He will occasionally have breakthrough seizures but the last seizure was 6 months ago. States he felt well however his visualized him having a seizure. He is unsure if he hit his head. He sustained right-sided chest trauma with abrasion and an abrasion of his left small toe. States that after the seizure he has been having a headache in the posterior aspect of his head. Denies any neck pain. No unilateral numbness or weakness. Denies any visual changes. No fevers or chills. He has been taking [place] for his pain however hasn't been helping. He has been taking his seizure medications and has not missed any doses. States he does not see a neurologist. His primary care doctor manage his medications. There are no other alleviating, precipitating or modifying factors - Related Data Home Medications Medication Instructions Recorded Confirmed HYDROcodone/APAP 10-325MG [[place] 1 - 2 tab PO Q8H PRN 09/25/19 09/25/19 10-325] Previous Rx's Medication Instructions Recorded levETIRAcetam [Keppra] 500 mg PO BID 14 Days tab 07/12/16 Allergies Allergy/AdvReac Type Severity Reaction Status Date / Time No Known Allergies Allergy Verified 09/25/19 17:13 Review of Systems ROS Statement: Those systems with pertinent positive or pertinent negative responses have been documented in the HPI. ROS Other: All systems not noted in ROS Statement are negative. Past Medical History Past Medical History: Osteoarthritis (OA), Seizure Disorder Additional Past Medical History / Comment(s): ARTHRITIS History of Any Multi-Drug Resistant Organisms: None Reported Past Surgical History: Appendectomy Additional Past Surgical History / Comment(s): 2 DISC BACK SURGERIES, CARPAL TUNNEL SRUGERY Past Anesthesia/Blood Transfusion Reactions: No Reported Reaction Past Psychological History: No Psychological Hx Reported Smoking Status: Current every day smoker Past Alcohol Use History: None Reported Past Drug Use History: None Reported - Past Family History Mother Additional Family Medical History / Comment(s): PACEMAKER General Exam Limitations: no limitations General appearance: alert, in no apparent distress Head exam: Present: atraumatic, normocephalic, normal inspection Eye exam: Present: normal appearance, PERRL, EOMI. Absent: scleral icterus, conjunctival injection, periorbital swelling ENT exam: Present: normal exam, mucous membranes moist Neck exam: Present: normal inspection. Absent: tenderness, meningismus, lymphadenopathy Respiratory exam: Present: normal lung sounds bilaterally. Absent: respiratory distress, wheezes, rales, rhonchi, stridor Cardiovascular Exam: Present: regular rate, normal rhythm, normal heart sounds. Absent: systolic murmur, diastolic murmur, rubs, gallop, clicks GI/Abdominal exam: Present: soft, normal bowel sounds. Absent: distended, tenderness, guarding, rebound, rigid Extremities exam: Present: normal inspection, full ROM, normal capillary refill. Absent: tenderness, pedal edema, joint swelling, calf tenderness Back exam: Present: normal inspection Neurological exam: Present: alert, oriented X3, CN II-XII intact Psychiatric exam: Present: normal affect, normal mood Skin exam: Present: warm, dry, intact, normal color. Absent: rash Course Vital Signs 09/25/19 09/25/19 15:13 17:16 Temperature 98.4 F Pulse Rate 73 66 Respiratory 18 18 Rate Blood Pressure 114/78 102/69 O2 Sat by Pulse 100 99 Oximetry Medical Decision Making - Medical Decision Making The patient was placed into room 13. A thorough history and physical exam was performed. As the patient is unsure if he had any head trauma I did recommend a CT of the patient's brain. Laboratory studies were also conducted. Patient was given migraine cocktail. Laboratory studies are unremarkable. CT the patient's brain demonstrates no acute intracranial hemorrhage. The patient is reevaluated and continues to have a headache. He was given a dose of Toradol. I did d iscuss diagnosis, differential treatment options. At this time patient will be discharged home. Follow up with primary care physician. Return to the emergency room for any new or worsening symptoms per patient was discharged home in stable condition - Lab Data Result diagrams: 09/25/19 15:44 09/25/19 15:44 Lab Results 09/25/19 09/25/19 09/25/19 Range/Units 15:44 15:44 15:44 WBC 7.7 (3.8-10.6) k/uL RBC 4.03 L (4.30-5.90) m/uL Hgb 12.1 L (13.0-17.5) gm/dL Hct 37.1 L (39.0-53.0) % MCV 92.0 (80.0-100.0) fL MCH 30.2 (25.0-35.0) pg MCHC 32.8 (31.0-37.0) g/dL RDW 12.9 (11.5-15.5) % Plt Count 163 (150-450) k/uL Neutrophils % 60 % Lymphocytes % 26 % Monocytes % 8 % Eosinophils % 2 % Basophils % 0 % Neutrophils # 4.6 (1.3-7.7) k/uL Lymphocytes # 2.0 (1.0-4.8) k/uL Monocytes # 0.7 (0-1.0) k/uL Eosinophils # 0.2 (0-0.7) k/uL Basophils # 0.0 (0-0.2) k/uL PT 10.6 (9.0-12.0) sec INR 1.0 (<1.2) APTT 23.3 (22.0-30.0) sec Sodium 136 L (137-145) mmol/L Potassium 3.5 (3.5-5.1) mmol/L Chloride 106 (98-107) mmol/L Carbon Dioxide 24 (22-30) mmol/L Anion Gap 6 mmol/L BUN 21 H (9-20) mg/dL Creatinine 1.04 (0.66-1.25) mg/dL Est GFR (CKD-EPI)AfAm 87 (>60 ml/min/1.73 sqM) Est GFR (CKD-EPI)NonAf 75 (>60 ml/min/1.73 sqM) Glucose 139 H (74-99) mg/dL Calcium 9.2 (8.4-10.2) mg/dL Total Bilirubin 0.6 (0.2-1.3) mg/dL AST 18 (17-59) U/L ALT 10 (4-49) U/L Alkaline Phosphatase 59 (38-126) U/L Total Protein 6.4 (6.3-8.2) g/dL Albumin 3.8 (3.5-5.0) g/dL Disposition Clinical Impression: Headache Disposition: HOME SELF-CARE Condition: Stable Instructions (If sedation given, give patient instructions): Acute Headache (ED) Additional Instructions: Please follow-up with your primary care doctor. Return to the emergency room for any new or worsening symptoms Is patient prescribed a controlled substance at d/c from ED?: No Referrals: Promise Dumas MD [Primary Care Provider] - 1-2 days Time of Disposition: 17:03
[2019-09-25 16:01] LABS: Basophils % (A) 0 %; Eosinophils # (A) 0.2 k/uL (0-0.7); Eosinophils % (A) 2 %; HCT 37.1 % (39.0-53.0); HGB 12.1 gm/dL (13.0-17.5); Lymphocytes % (A) 26 %; MCH 30.2 pg (25.0-35.0); MCHC 32.8 g/dL (31.0-37.0); Mean Platelet Volume 8.9; Monocytes # (A) 0.7 k/uL (0-1.0); Monocytes % (A) 8 %; Neutrophils # (A) 4.6 k/uL (1.3-7.7); Neutrophils % (A) 60 %; Platelet Count 163 k/uL (150-450); RBC 4.03 m/uL (4.30-5.90); RDW 12.9 % (11.5-15.5); WBC 7.7 k/uL (3.8-10.6)
[2019-09-25 16:06] LABS: Albumin 3.8 g/dL (3.5-5.0); Calcium 9.2 mg/dL (8.4-10.2); Potassium 3.5 mmol/L (3.5-5.1); Total Bilirubin 0.6 mg/dL (0.2-1.3); Total Protein 6.4 g/dL (6.3-8.2)
[2019-09-25 16:07] LABS: Partial Thromboplastin Time 23.3 sec (22.0-30.0); Prothrombin Time 10.6 sec (9.0-12.0)
--- NOTE | 2019-09-25 16:49 | CT ---
EXAMINATION TYPE: CT brain theresa wo con DATE OF EXAM: 09/25/2019 COMPARISON: None HISTORY: Seizure and headache. Neck pain CT DLP: 1381.4 mGycm Automated exposure control for dose reduction was used. Multiple axial sections were obtained of the brain without contrast. Multiple axial sections were obt ained from the skull base to T1 vertebra without contrast. FINDINGS: There is some straightening of the cervical spine at C2-3 with slight kyphotic deformity. There is a plate with screws fusing anteriorly the spine from C3 to C7. The facet joints are intact. The skull b ase is intact. There is some deformity at the C3-4 level with somewhat posterior position of the C3 v ertebral body in relation to the lower cervical spine and narrowing of the spinal canal. There is 5 mm spinal stenosis at C3 level. There is normal aeration of the temporal bones. Skull base is intact. There is mild cerebral cortical atrophy appropriate for age. There is no mass effect nor midline shif t. There is no sign of intracranial hemorrhage. The calvarium is intact. There is no evidence of cere bral edema. IMPRESSION: Negative CT scan of the brain. There is multilevel cervical spine fusion surgery with deformity at the C2 C3 C4 level and 5 mm spina l stenosis. C2-3 kyphotic deformity. No acute bony abnormality of the cervical spine.
[2019-09-25] MEDS ORDERED: KETOROLAC 30 MG/ML 1 ML VIAL IVP STA (17:01)
[2019-09-25 17:19] VITALS: BP 102/69; PULSE 66
== END 2019-09-25 17:50 | disposition home or self-care (01) ==
LOC: EC 15:10
DX: R51 Headache (principal); F17.200 Nicotine dependence, unspecified, uncomplicated
CPT/HCPCS: 36415; 80053; 85025; 85610; 85730; 72125; 70450; 99284; 96365; 96375 ×4; J1200; J1100; J2765; J1885; J3475

== ENCOUNTER 2020-07-20 22:03 | Emergency (ER) | payer MEDICARE ==
[2020-07-20 22:07] VITALS: TEMP 97.9
[2020-07-20] MEDS ORDERED: IBUPROFEN 800 MG TAB PO STA (22:11)
[2020-07-20] MEDS ORDERED: MORPHINE SULFATE 4 MG/ML SYRINGE IM STA (22:11)
[2020-07-20] MEDS ORDERED: ACETAMINOPHEN TAB 500 MG TAB PO STA (22:11)
--- NOTE | 2020-07-20 22:11 | ED ---
Back Pain HPI - General Chief Complaint: Back Pain/Injury Stated Complaint: back pain Time Seen by Provider: 07/20/20 22:09 Source: patient, RN notes reviewed, old records reviewed Limitations: no limitations - History of Present Illness Initial Comments: This is a 65-year-old male DF for evaluation. Patient Dese for evaluation regards to back pain. Patient states he has some chronic back pain issues and difficulty with bowel issues. No dysuria. No weakness no loss of bowel or bladder able ambulate without difficulty. No traumatic injury noted MD Complaint: back pain -: days(s) Similar Symptoms Previously: Yes Place: home Radiation: none Severity: moderate Severity scale (1-10): 4 Quality: burning Consistency: constant Improves With: none Worsens With: none Context: unknown Associated Symptoms: other Treatments Prior to Arrival: other (none) - Related Data Home Medications Medication Instructions Recorded Confirmed HYDROcodone/APAP 10-325MG [[place] 1 - 2 tab PO Q8H PRN 09/25/19 07/20/20 10-325] levETIRAcetam [Keppra] 1,000 mg PO DAILY 07/20/20 07/20/20 Allergies Allergy/AdvReac Type Severity Reaction Status Date / Time No Known Allergies Allergy Verified 07/20/20 22:59 Review of Systems ROS Statement: Those systems with pertinent positive or pertinent negative responses have been documented in the HPI. ROS Other: All systems not noted in ROS Statement are negative. Past Medical History Past Medical History: Osteoarthritis (OA), Seizure Disorder Additional Past Medical History / Comment(s): ARTHRITIS History of Any Multi-Drug Resistant Organisms: None Reported Past Surgical History: Appendectomy Additional Past Surgical History / Comment(s): 2 DISC BACK SURGERIES, CARPAL TUNNEL SRUGERY Past Anesthesia/Blood Transfusion Reactions: No Reported Reaction Past Psychological History: No Psychological Hx Reported Smoking Status: Current every day smoker Past Alcohol Use History: None Reported Past Drug Use History: None Reported - Past Family History Mother Additional Family Medical History / Comment(s): PACEMAKER General Exam Limitations: no limitations General appearance: alert, in no apparent distress Head exam: Present: atraumatic, normocephalic, normal inspection Eye exam: Present: normal appearance, PERRL, EOMI. Absent: scleral icterus, conjunctival injection, periorbital swelling ENT exam: Present: normal exam, mucous membranes moist Neck exam: Present: normal inspection. Absent: tenderness, meningismus, lymphadenopathy Respiratory exam: Present: normal lung sounds bilaterally. Absent: respiratory distress, wheezes, rales, rhonchi, stridor Cardiovascular Exam: Present: regular rate, normal rhythm, normal heart sounds. Absent: systolic murmur, diastolic murmur, rubs, gallop, clicks GI/Abdominal exam: Present: soft, normal bowel sounds. Absent: distended, tenderness, guarding, rebound, rigid Extremities exam: Present: normal inspection, full ROM, normal capillary refill. Absent: tenderness, pedal edema, joint swelling, calf tenderness Back exam: Present: normal inspection Neurological exam: Present: alert, oriented X3, CN II-XII intact Psychiatric exam: Present: normal affect, normal mood Skin exam: Present: warm, dry, intact, normal color. Absent: rash Course Vital Signs 07/20/20 07/21/20 22:04 00:15 Temperature 97.9 F Pulse Rate 76 68 Respiratory 17 16 Rate Blood Pressure 110/67 96/48 O2 Sat by Pulse 100 100 Oximetry - Reevaluation(s) Reevaluation #1: Medical record is reviewed Symptoms improved here in the ER Patient informed of results and questions answered Medical Decision Making - Medical Decision Making 65 male DF for evaluation of back pain. Patient has negative imaging here in the ER will be discharged home with pain control - Radiology Data Radiology results: report reviewed (CT abdomen and pelvis negative for acute disease), image reviewed Disposition Clinical Impression: Mid back pain, Back pain, Constipation Disposition: HOME SELF-CARE Condition: Good Instructions (If sedation given, give patient instructions): Acute Low Back Pain (ED) Is patient prescribed a controlled substance at d/c from ED?: No Referrals: Promise Dumas MD [Primary Care Provider] - 1-2 days
--- NOTE | 2020-07-20 22:59 | CT ---
EXAMINATION TYPE: CT abdomen pelvis wo con DATE OF EXAM: 07/20/2020 COMPARISON: 04/12/2019 HISTORY: flank pain CT DLP: 287.4 mGycm Automated exposure control for dose reduction was used. Images obtained from the diaphragm to the floor the pelvis with no contrast. The lung bases are clear. There is no pleural effusion. Heart size is normal. There is no pericardial effusion. Stomach is intact. Liver shows no focal defect. Spleen is intact. There is no sign of panc reatic mass. The bile ducts are not dilated. Gallbladder has normal size. There is no adrenal mass. Kidneys have normal size and contour. There is no hydronephrosis. Ureters a re not dilated. Bladder distends smoothly. There is no inguinal hernia. There is no free fluid in the pelvis. There is retained fecal material throughout the large bowel. There is no sign of free air. T here is no ascites. There is no sign of mesenteric edema. There is apparent enlarged prostate gland t hat measures 5.6 cm. The lumbar vertebra have normal alignment. There is no compression fracture. The bony pelvis is intac t. Hip joints are intact. There is no hip dysplasia. IMPRESSION: There is evidence of constipation. Enlarged prostate. There is clearing of the atelectasis left lung base compared to old exam. Constipation similar to old exam.
[2020-07-21] MEDS ORDERED: ACET/COD 300 MG/30 MG STARTER PACK 6 TAB BTL PO STA (00:04)
[2020-07-21] MEDS ORDERED: SENNOSIDES-DOCUSATE SODIUM 1 EACH TAB PO STA (00:04)
[2020-07-21] MEDS ORDERED: GLYCERIN ADULT SUPPOSITORY 1 EACH RECTAL STA (00:04)
[2020-07-21 00:16] VITALS: BP 96/48; PULSE 68; RESP 16
== END 2020-07-21 00:16 | disposition home or self-care (01) ==
LOC: EC 22:03
DX: M54.9 Dorsalgia, unspecified (principal); K59.00 Constipation, unspecified; G40.909 Epilepsy, unspecified, not intractable, without status epilepticus; F17.200 Nicotine dependence, unspecified, uncomplicated; M19.90 Unspecified osteoarthritis, unspecified site
CPT/HCPCS: 74176; 99283; 96372; J2270; 99285

== ENCOUNTER 2021-05-26 13:46 | Observation (INO) | payer MEDICARE ==
[2021-05-26] MEDS ORDERED: MORPHINE SULFATE 4 MG/ML SYRINGE IV STA (14:19)
[2021-05-26] MEDS ORDERED: ASPIRIN 81 MG PO STA (14:19)
[2021-05-26] MEDS ORDERED: NITROGLYCERIN SL TABS 0.4 MG TAB SUBLINGUAL STA (14:19)
--- NOTE | 2021-05-26 14:19 | ED ---
Chest Pain HPI - General Chief Complaint: Chest Pain Stated Complaint: Chest Pain,PCP sent pt in Source: patient Mode of arrival: ambulatory Limitations: no limitations - History of Present Illness Initial Comments: 66-year-old male with past medical history of osteoarthritis and seizure disorder presents to the emergency department with chest pain. He states that the chest pain has been going on for several months however began last night and was significant. States it was 10 out of 10, substernal without radiation. Reported to associated shortness of breath and nausea. He denies any previous history of coronary disease. No history of DVT or PE. No ripping or tearing sensation to his back. He did go to his primary care office who completed an EKG and was concerned for his morphology and therefore sent him to the emergency department for further evaluation. No fevers, chills or cough. No other alleviating, precipitating modifying factors - Related Data Home Medications Medication Instructions Recorded Confirmed HYDROcodone/APAP 10-325MG [[place] 1 tab PO Q6H PRN 09/25/19 05/26/21 10-325] levETIRAcetam [Keppra] 1,000 mg PO DAILY 07/20/20 05/26/21 Ibuprofen [Motrin] 800 mg PO Q8H PRN 05/26/21 05/26/21 Naloxone HCl 0.4 mg NASAL ONCE PRN 05/26/21 05/26/21 Previous Rx's Medication Instructions Recorded Aspirin 81 mg PO DAILY 90 Days #90 05/28/21 Atorvastatin [Lipitor] 20 mg PO DAILY 30 Days #30 tab 05/28/21 Allergies Allergy/AdvReac Type Severity Reaction Status Date / Time No Known Allergies Allergy Verified 05/26/21 15:54 Review of Systems ROS Statement: Those systems with pertinent positive or pertinent negative responses have been documented in the HPI. ROS Other: All systems not noted in ROS Statement are negative. EKG Findings - EKG Comments: EKG Findings:: EKG demonstrates sinus rhythm with rate of 55. CA interval 73. QRS 95. QTC of 399. ST segment elevation in V2 through V6. No reciprocal changes. Past Medical History Past Medical History: Osteoarthritis (OA), Seizure Disorder Additional Past Medical History / Comment(s): ARTHRITIS History of Any Multi-Drug Resistant Organisms: None Reported Past Surgical History: Appendectomy Additional Past Surgical History / Comment(s): 2 DISC BACK SURGERIES, CARPAL TUNNEL SRUGERY Past Anesthesia/Blood Transfusion Reactions: No Reported Reaction Past Psychological History: No Psychological Hx Reported Smoking Status: Current every day smoker Past Alcohol Use History: None Reported Past Drug Use History: None Reported - Past Family History Mother Additional Family Medical History / Comment(s): PACEMAKER General Exam Limitations: no limitations General appearance: alert, in no apparent distress Head exam: Present: atraumatic, normocephalic, normal inspection Eye exam: Present: normal appearance, PERRL, EOMI. Absent: scleral icterus, conjunctival injection, periorbital swelling ENT exam: Present: normal exam, mucous membranes moist Neck exam: Present: normal inspection. Absent: tenderness, meningismus, lymphadenopathy Respiratory exam: Present: normal lung sounds bilaterally. Absent: respiratory distress, wheezes, rales, rhonchi, stridor Cardiovascular Exam: Present: regular rate, normal rhythm, normal heart sounds. Absent: systolic murmur, diastolic murmur, rubs, gallop, clicks GI/Abdominal exam: Present: soft, normal bowel sounds. Absent: distended, tenderness, guarding, rebound, rigid Extremities exam: Present: normal inspection, full ROM, normal capillary refill. Absent: tenderness, pedal edema, joint swelling, calf tenderness Back exam: Present: normal inspection Neurological exam: Present: alert, oriented X3, CN II-XII intact Psychiatric exam: Present: normal affect, normal mood Skin exam: Present: warm, dry, intact, normal color. Absent: rash Course Vital Signs 05/26/21 05/26/21 05/26/21 13:51 16:22 17:41 Temperature 97.8 F Pulse Rate 59 L 54 L Respiratory 16 16 16 Rate Blood Pressure 117/72 110/45 O2 Sat by Pulse 96 95 Oximetry 05/26/21 18:35 Temperature Pulse Rate 52 L Respiratory 16 Rate Blood Pressure 107/69 O2 Sat by Pulse 96 Oximetry Chest Pain MDM - MDM On arrival patient is placed into room 9. A thorough history and physical exam was performed. Patient placed on continuous pulse ox and cardiac monitoring. 12-lead EKG was obtained which does demonstrate some ST segment elevation in the anterior leads. I did review the patient's previous EKG from 2017 which does have some similar apology. Because of this I immediately spoke with Dr. Sandoval. He recommends heparin, aspirin, nitro. Requested admission for echo. We will trend the patient's troponins. Laboratory studies were reviewed. Troponin was negative. Chest x-ray demonstrated no acute process. I did call and speak with Dr. Olmos who agreed to admit the patient. He remained in stable condition awaiting a bed on the floor Critical Care Time Critical Care Time: Yes Critical Care Time: 32 minutes Disposition Clinical Impression: Chest pain Disposition: ADMITTED IP TO THIS [facility] Condition: Stable Is patient prescribed a controlled substance at d/c from ED?: No Decision to Admit Reason: Admit from EC Decision Date: 05/26/21 Decision Time: 17:27
[2021-05-26] MEDS ORDERED: HEPARIN SODIUM 1,000 UN/ML (10ML VL) IV ONE (14:22)
[2021-05-26] MEDS ORDERED: HEPARIN SODIUM 1,000 UN/ML (10ML VL) IV PRN (14:22)
[2021-05-26] MEDS ORDERED: HEPARIN SOD,PORK IN 0.45% NACL 25,000 UNIT in 0.45% NACL 1 250ML.BAG IV SCH (14:30)
[2021-05-26 14:36] LABS: Basophils % (A) 0 %; Eosinophils # (A) 0.5 k/uL (0-0.7); Eosinophils % (A) 4 %; HCT 38.5 % (39.0-53.0); HGB 12.2 gm/dL (13.0-17.5); Hypochromasia Slight; Lymphocytes # (A) 1.9 k/uL (1.0-4.8); Lymphocytes % (A) 16 %; MCH 29.6 pg (25.0-35.0); MCHC 31.7 g/dL (31.0-37.0); MCV 93.5 fL (80.0-100.0); Mean Platelet Volume 7.8; Monocytes # (A) 0.8 k/uL (0-1.0); Monocytes % (A) 7 %; Neutrophils # (A) 8.3 k/uL (1.3-7.7); Neutrophils % (A) 71 %; Platelet Count 192 k/uL (150-450); RBC 4.12 m/uL (4.30-5.90); RDW 13.2 % (11.5-15.5); WBC 11.7 k/uL (3.8-10.6)
[2021-05-26 14:51] LABS: ALT 8 U/L (4-49); AST 14 U/L (17-59); African American GFR (CKD) >90 (>60 ml/min/1.73 sqM); Albumin 4.1 g/dL (3.5-5.0); Alkaline Phosphatase 78 U/L (38-126); Anion Gap 7 mmol/L; Blood Urea Nitrogen 17 mg/dL (9-20); Carbon Dioxide 24 mmol/L (22-30); Chloride 108 mmol/L (98-107); Glucose 98 mg/dL (74-99); Magnesium 1.9 mg/dL (1.6-2.3); Non-African American GFR(CKD) 82 (>60 ml/min/1.73 sqM); Potassium 4.1 mmol/L (3.5-5.1); Sodium 139 mmol/L (137-145); Total Bilirubin 0.6 mg/dL (0.2-1.3); Total Protein 7.1 g/dL (6.3-8.2)
[2021-05-26 15:01] LABS: Partial Thromboplastin Time 25.4 sec (22.0-30.0); Prothrombin Time 10.5 sec (9.0-12.0)
--- NOTE | 2021-05-26 16:53 | XR ---
EXAMINATION TYPE: XR chest 2V DATE OF EXAM: 05/26/2021 COMPARISON: NONE HISTORY: Chest pain TECHNIQUE: 2 views FINDINGS: Heart and mediastinum are normal. Lungs are clear. Diaphragm is normal. Bony thorax appears normal. IMPRESSION: Normal chest.
[2021-05-26] MEDS ORDERED: NALOXONE 0.4 MG/ML 1 ML VIAL IV PRN (17:27)
--- NOTE | 2021-05-26 18:10 | P.HPIM ---
History of Present Illness H&P Date: 05/26/21 Chief Complaint: chest pain 66-year-old male with history of seizure on Keppra presented to the emergency department because of episodes of chest pain that have been happening over the past 6 months. He had it twice last month. Last episode was last night. He states this is associated with shortness of breath. No nausea or vomiting. No diaphoresis. Not necessarily exertional. Pain is more with moving the arms or the shoulders. 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 He has no heart history. In the emergency department he was worked up with an EKG that showed slight ST elevation in leads V1 through V3 which is old. Chest x-ray unremarkable. Labs unremarkable. The case was discussed with Dr. Weinberg from cardiology who advised heparin drip and admission. Review of Systems 12 point review of system was performed, negative except for what is stated in HPI Past Medical History Past Medical History: Osteoarthritis (OA), Seizure Disorder Additional Past Medical History / Comment(s): ARTHRITIS History of Any Multi-Drug Resistant Organisms: None Reported Past Surgical History: Appendectomy Additional Past Surgical History / Comment(s): 2 DISC BACK SURGERIES, CARPAL TUNNEL SRUGERY Past Anesthesia/Blood Transfusion Reactions: No Reported Reaction Past Psychological History: No Psychological Hx Reported Smoking Status: Current every day smoker Past Alcohol Use History: None Reported Past Drug Use History: None Reported - Past Family History Mother Additional Family Medical History / Comment(s): PACEMAKER Medications and Allergies Home Medications Medication Instructions Recorded Confirmed Type HYDROcodone/APAP 10-325MG [[place] 1 tab PO Q6H PRN 09/25/19 05/26/21 History 10-325] levETIRAcetam [Keppra] 1,000 mg PO DAILY 07/20/20 05/26/21 History Ibuprofen [Motrin] 800 mg PO Q8H PRN 05/26/21 05/26/21 History Naloxone HCl 0.4 mg NASAL ONCE PRN 05/26/21 05/26/21 History Allergies Allergy/AdvReac Type Severity Reaction Status Date / Time No Known Allergies Allergy Verified 05/26/21 15:54 Physical Exam Vitals: Vital Signs Temp Pulse Resp BP Pulse Ox 05/26/21 16:22 54 L 16 110/45 95 05/26/21 13:51 97.8 F 59 L 16 117/72 96 Intake and Output 05/26/21 05/26/21 05/26/21 06:59 14:59 22:59 Other: Weight 61.235 kg Constitutional: No acute distress, conversant, pleasant Eyes:Anicteric sclerae, moist conjunctiva, no lid-lag, PERRLA, ENMT: Oropharynx clear, no erythema, exudates Neck: Supple, FROM, no masses, or JVD, No carotid bruits, No thyromegaly Lungs: Tenderness of the chest with palpation. Clear to auscultation, Clear to percussion, Normal respiratory effort, no accessory muscle use Cardiovascular: Heart regular in rate and rhythm, No murmurs, gallops, or rubs, No peripheral edema Abdominal: Soft, Nontender, no guarding, rebound or rigidity, Normoactive bowel sounds, No hepatomegaly, No splenomegaly, No palpable mass Skin: Normal temperature, tone, texture, turgor, no induration, No subcutaneous nodules, No rash, lesions, No ulcers Extremities: No digital cyanosis, No clubbing, Pedal pulses intact and symmetrical, Radial pulses intact and symmetrical, No calf tenderness Psychiatric: Alert and oriented to person, place and time, appropriate affect, intact judgement Neuro: Muscles Strength 5/5 in all 4 extremities, Sensation to light touch grossly present throughout, Cranial nerves II-XII grossly intact, no focal sensory deficits Results CBC & Chem 7: 05/26/21 14:25 05/26/21 14:25 Labs: Abnormal Lab Results - Last 24 Hours (Table) 05/26/21 05/26/21 Range/Units 14:25 14:25 WBC 11.7 H (3.8-10.6) k/uL RBC 4.12 L (4.30-5.90) m/uL Hgb 12.2 L (13.0-17.5) gm/dL Hct 38.5 L (39.0-53.0) % Neutrophils # 8.3 H (1.3-7.7) k/uL Chloride 108 H (98-107) mmol/L AST 14 L (17-59) U/L Assessment and Plan Plan: Acute chest pain Cycle troponins Admit to observation Telemetry Cardiology consultation Heparin drip History of seizure [facility] Patient will be admitted to observation.
[2021-05-26] MEDS ORDERED: IBUPROFEN 400 MG TAB PO PRN (22:03)
[2021-05-26] MEDS ORDERED: HYDROcodone/APAP 10-325MG 1 EACH TAB PO PRN (22:03)
[2021-05-27] MEDS: levETIRAcetam 500 MG TAB PO SCH (08:29)
[2021-05-27] MEDS: ATORVASTATIN 20 MG TAB PO SCH (08:29)
[2021-05-27] MEDS: ASPIRIN 81 MG PO SCH (08:29)
[2021-05-27 08:30] LABS: Basophils % (A) 1 %; Eosinophils # (A) 0.5 k/uL (0-0.7); Eosinophils % (A) 6 %; HCT 33.2 % (39.0-53.0); HGB 10.9 gm/dL (13.0-17.5); Lymphocytes # (A) 1.9 k/uL (1.0-4.8); Lymphocytes % (A) 22 %; MCH 30.5 pg (25.0-35.0); MCHC 32.8 g/dL (31.0-37.0); Mean Platelet Volume 8.3; Monocytes # (A) 0.7 k/uL (0-1.0); Monocytes % (A) 8 %; Neutrophils # (A) 5.5 k/uL (1.3-7.7); Neutrophils % (A) 62 %; Platelet Count 173 k/uL (150-450); RBC 3.57 m/uL (4.30-5.90); RDW 13.2 % (11.5-15.5); WBC 8.8 k/uL (3.8-10.6)
[2021-05-27 08:41] LABS: African American GFR (CKD) 86 (>60 ml/min/1.73 sqM); Anion Gap -1 mmol/L; Blood Urea Nitrogen 18 mg/dL (9-20); Calcium 8.4 mg/dL (8.4-10.2); Carbon Dioxide 25 mmol/L (22-30); Chloride 111 mmol/L (98-107); Glucose 86 mg/dL (74-99); Non-African American GFR(CKD) 74 (>60 ml/min/1.73 sqM); Potassium 3.8 mmol/L (3.5-5.1); Sodium 135 mmol/L (137-145)
[2021-05-27 12:22] LABS: Prothrombin Time 11.3 sec (9.9-11.9)
--- NOTE | 2021-05-27 16:09 | P.CRDCN ---
History of Present Illness Consult date: 05/27/21 Consult reason: chest pain History of present illness: This is Iftikhar Yancey NP, I'm dictating on behalf of Dr. Sandoval's H&P and A&P The patient was interviewed and examined. HPI: Patient is a pleasant 66 year old male who presented to the hospital at the recommendation of his primary care physician for EKG changes. Patient reports he has had chest pain intermittent for a few months now, he went to his PCP and had an EKG done which was concerning and he was sent to the hospital. He denies current chest pain, sob, heart palpitations, dizzyness, syncope, or blurry vision. He does appreciate chest pain/discomfort with exertion mostly. He recently moved to [place], and was initially told his chest pain was likely due to moving boxes. He has a past medical history that includes seizures, and osteoarthritis. Today the patient reports that he feels good. He denies chest pain and shortness of breath at this time. ROS: [No fever, chills, or rigors] [no cough, phlegm, or expectoration] [no nausea, vomiting, or diarrhea] [no hematuria, dysuria] [no musculoskelatal complaints] [no strokes or seizures] [no skin lesions] EXAMINATION: GENERAL: Well-appearing, well-nourished and in no acute distress. NECK: Supple without JVD or thyromegaly. LUNGS: Breath sounds clear to auscultation bilaterally. Respiration equal and unlabored. No wheezes, rales or rhonchi. HEART: Regular rate and rhythm without murmurs, rubs or gallops. S1 and S2 heard. EXTREMITIES: Normal range of motion, no edema. No clubbing or cyanosis. Periph eral pulses intact and strong. REVIEW OF LABS, ECG & MEDICAL DATA: LABS: White count 8.8, hemoglobin 10.9, platelets 173, sodium 135, potassium 3.8, chloride 111, BUNs 18, creatinine 1.04, magnesium 1.9, serial troponins times 4 less than 0.012, BNP 95 EKG: Very mild ST elevation in leads V1-V3, otherwise sinus bradycardia IMAGING: Chest x-ray dated 05/26/2021 shows a normal chest VITALS: Temp 97.6, pulse 56, respirations 20, blood pressure 104/62, O2 saturation 100% on room air IMPRESSION/PLAN: 1. Chest pain- Lipid Panel, Repeat EKG,Atorvastatin 20mg 1 tab daily, Aspirin 81mg daily, Repeat Trop Further recommendations based on clinical course Thank you for the consult and allowing us to participate in the care of this patient. Past Medical History Past Medical History: Osteoarthritis (OA), Seizure Disorder Additional Past Medical History / Comment(s): ARTHRITIS History of Any Multi-Drug Resistant Organisms: None Reported Past Surgical History: Appendectomy Additional Past Surgical History / Comment(s): 2 DISC BACK SURGERIES, CARPAL TUNNEL SRUGERY Past Anesthesia/Blood Transfusion Reactions: No Reported Reaction Past Psychological History: No Psychological Hx Reported Smoking Status: Current every day smoker Past Alcohol Use History: None Reported Past Drug Use History: None Reported - Past Family History Mother Additional Family Medical History / Comment(s): PACEMAKER Medications and Allergies Home Medications Medication Instructions Recorded Confirmed Type HYDROcodone/APAP 10-325MG [[place] 1 tab PO Q6H PRN 09/25/19 05/26/21 History 10-325] levETIRAcetam [Keppra] 1,000 mg PO DAILY 07/20/20 05/26/21 History Ibuprofen [Motrin] 800 mg PO Q8H PRN 05/26/21 05/26/21 History Naloxone HCl 0.4 mg NASAL ONCE PRN 05/26/21 05/26/21 History Allergies Allergy/AdvReac Type Severity Reaction Status Date / Time No Known Allergies Allergy Verified 05/26/21 15:54 Physical Exam Vitals: Vital Signs Temp Pulse Pulse Resp BP BP Pulse Ox 05/27/21 07:00 98.3 F 64 19 102/58 99 05/27/21 01:35 16 05/27/21 00:26 98.3 F 63 15 121/67 100 05/26/21 19:37 97.9 F 55 L 16 115/65 100 05/26/21 18:35 52 L 16 107/69 96 05/26/21 17:41 16 05/26/21 16:22 54 L 16 110/45 95 05/26/21 13:51 97.8 F 59 L 16 117/72 96 Intake and Output 05/26/21 05/27/21 05/27/21 22:59 06:59 14:59 Other: Voiding Method Toilet Toilet # Voids 1 2 # Bowel Movements 0 Weight 61.235 kg Results 05/27/21 07:10 05/27/21 07:10 Cardiac Enzymes 05/26/21 05/26/21 05/26/21 Range/Units 14:25 14:25 20:40 AST 14 L (17-59) U/L Troponin I <0.012 <0.012 (0.000-0.034) ng/mL 05/26/21 Range/Units 23:00 AST (17-59) U/L Troponin I <0.012 (0.000-0.034) ng/mL Coagulation 05/26/21 05/26/21 Range/Units 14:25 20:40 PT 10.5 (9.0-12.0) sec APTT 25.4 44.1 H (22.0-30.0) sec CBC 05/26/21 Range/Units 14:25 WBC 11.7 H (3.8-10.6) k/uL RBC 4.12 L (4.30-5.90) m/uL Hgb 12.2 L (13.0-17.5) gm/dL Hct 38.5 L (39.0-53.0) % Plt Count 192 (150-450) k/uL Comprehensive Metabolic Panel 05/26/21 Range/Units 14:25 Sodium 139 (137-145) mmol/L Potassium 4.1 (3.5-5.1) mmol/L Chloride 108 H (98-107) mmol/L Carbon Dioxide 24 (22-30) mmol/L BUN 17 (9-20) mg/dL Creatinine 0.96 (0.66-1.25) mg/dL Glucose 98 (74-99) mg/dL Calcium 9.0 (8.4-10.2) mg/dL AST 14 L (17-59) U/L ALT 8 (4-49) U/L Alkaline Phosphatase 78 (38-126) U/L Total Protein 7.1 (6.3-8.2) g/dL Albumin 4.1 (3.5-5.0) g/dL Current Medications Generic Name Dose Route Start Last Admin Trade Name Freq PRN Reason Stop Dose Admin Hydrocodone Bitart/Acetaminophen 1 each 05/26/21 22:03 05/27/21 01:21 Hydrocodone/Apap 10-325mg 1 Each Tab PO 1 each Q6H PRN Administration Pain Heparin Sodium (Porcine) 0 unit 05/26/21 14:22 Heparin Sodium 1,000 Un/Ml (10ml Vl) IV PER PROTOCOL PRN Low PTT Protocol Ibuprofen 800 mg 05/26/21 22:03 Ibuprofen 400 Mg Tab PO Q8H PRN Pain Levetiracetam 1,000 mg 05/27/21 09:00 Levetiracetam 500 Mg Tab PO DAILY ALBERT Naloxone HCl 0.2 mg 05/26/21 17:27 Naloxone 0.4 Mg/Ml 1 Ml Vial IV Q2M PRN Opioid Reversal Intake and Output 05/26/21 05/27/21 05/27/21 22:59 06:59 14:59 Other: Voiding Method Toilet Toilet # Voids 1 2 # Bowel Movements 0 Weight 61.235 kg 05/26/21 14:25 05/26/21 14:25
--- NOTE | 2021-05-27 19:00 | ECHOF ---
Referral Reason:chest pain MEASUREMENTS -------- HEIGHT: 167.6 cm WEIGHT: 61.2 kg BP: RVIDd: 1.5 cm (< 3.3) IVSd: 1.0 cm (0.6 - 1.1) LVIDd: 4.0 cm (3.9 - 5.3) LVPWd: 1.1 cm (0.6 - 1.1) IVSs: 1.6 cm LVIDs: 2.9 cm LVPWs: 1.5 cm LAESV Index (A-L): 24.18 ml/m Ao Diam: 3.7 cm (2.0 - 3.7) AV Cusp: 2.0 cm (1.5 - 2.6) LA Diam: 2.9 cm (2.7 - 3.8) MV EXCURSION: 17.874 mm (> 18.000) MV EF SLOPE: 104 mm/s (70 - 150) EPSS: 0.8 cm MV E Aly: 0.71 m/s MV DecT: 222 ms MV A Aly: 0.60 m/s MV E/A Ratio: 1.18 RAP: 5.00 mmHg RVSP: 16.92 mmHg FINDINGS -------- This was a technically good study. The left ventricular size is normal. Left ventricular wall thickness is normal. Overall left vent ricular systolic function is normal with, an EF between 55 - 60 %. The diastolic filling pattern is normal for the age of the patient 8.85. The right ventricle is normal in size. The left atrial size is normal. Normal LA size by volume 22+/-6 ml/m2. The right atrial size is normal. Aneurysmal Interatrial septum. The aortic valve is trileaflet and appears structurally normal. The mitral valve is normal. Mild mitral regurgitation is present. The tricuspid valve appears structurally normal. Mild tricuspid regurgitation present. Right vent ricular systolic pressure is normal at < 35 mmHg. There is no pulmonic regurgitation present. The aortic root size is normal. Normal inferior vena cava with normal inspiratory collapse consistent with estimated right atrial pre ssure of 5 mmHg. There is no pericardial effusion. CONCLUSIONS -------- 1. The left ventricular size is normal. 2. Left ventricular wall thickness is normal. 3. Overall left ventricular systolic function is normal with, an EF between 55 - 60 %. 4. The diastolic filling pattern is normal for the age of the patient 8.85 5. Aneurysmal Interatrial septum. 6. Mild mitral regurgitation is present. 7. Mild tricuspid regurgitation present. 8. There is no pericardial effusion. TRENCH DIGGING MACHINE OPERATOR: Simona Potter RDCS
[2021-05-28 07:26] VITALS: BP 105/63; PULSE 60; RESP 20; TEMP 98.1
[2021-05-28] MEDS: levETIRAcetam 500 MG TAB PO SCH (09:01)
[2021-05-28] MEDS: ASPIRIN 81 MG PO SCH (09:01)
[2021-05-28] MEDS: ATORVASTATIN 20 MG TAB PO SCH (09:01)
--- NOTE | 2021-05-28 10:44 | P.DS ---
Providers Date of admission: 05/26/21 17:27 Expected date of discharge: 05/28/21 Attending physician: Sally Hoffmann DO Consults: 05/26/21 17:28 Consult Physician Urgent Consulting Provider: [facility] Consult Reason/Comments: acute chest pain, possible acs Do you want consulting provider notified?: Yes Primary care physician: Piter Valdes [facility] Hospital Course: 66-year-old male with history of seizure on Keppra presented to the emergency department because of episodes of chest pain that have been happening over the past 6 months. He had it twice last month. Last episode was last night. He states this is associated with shortness of breath. No nausea or vomiting. No diaphoresis. Not necessarily exertional. Pain is more with moving the arms or the shoulders. 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 He has no heart history. In the emergency department he was worked up with an EKG that showed slight ST elevation in leads V1 through V3 which is old. Chest x-ray unremarkable. Labs unremarkable. The case was discussed with Dr. Weinberg from cardiology who advised heparin drip and admission. On examination he did have reproducible chest pain with deep palpation of the anterior chest wall. Patient was seen by cardiology, an echocardiogram was ordered and that didn't show any wall motion abnormalities. His EF was normal. During the admission he did not have any recurrent chest pain. Patient was advised to follow-up with cardiology in the office for possible stress test. He was also advised to do some muscle stretching of his chest. He will be discharged in a stable condition. Patient Condition at Discharge: Stable Plan - Discharge Summary Discharge Rx Participant: No New Discharge Prescriptions: Continue HYDROcodone/APAP 10-325MG [[place] 10-325] 1 tab PO Q6H PRN PRN Reason: Pain levETIRAcetam [Keppra] 1,000 mg PO DAILY Naloxone HCl 0.4 mg NASAL ONCE PRN PRN Reason: OVERDOSE Ibuprofen [Motrin] 800 mg PO Q8H PRN PRN Reason: Pain Discharge Medication List HYDROcodone/APAP 10-325MG [[place] 10-325] 1 tab PO Q6H PRN 09/25/19 [History] levETIRAcetam [Keppra] 1,000 mg PO DAILY 07/20/20 [History] Ibuprofen [Motrin] 800 mg PO Q8H PRN 05/26/21 [History] Naloxone HCl 0.4 mg NASAL ONCE PRN 05/26/21 [History] Follow up Appointment(s)/Referral(s): Promise Dumas MD [Primary Care Provider] - 1-2 days
--- NOTE | 2021-05-28 14:30 | P.PN ---
Subjective Progress Note Date: 05/28/21 This is Iftikhar ruiz NP, I'm dictating on behalf of Dr. Sandoval's H&P and A&P. Patient was interviewed and examined. Patient is a pleasant 66-year-old male who initially presented to the hospital with acute chest pain rule out ACS. Patient reports that he has had no chest pain or shortness of breath while in the hospital. Patient had an echocardiogram yesterday completed which shows a EF of 55-60%, mild mitral and tricuspid valve regurgitation. From a cardiology standpoint the patient is ready for discharge at this time. Patient should be discharged on aspirin 81 mg 1 tab daily. Atorvastatin 10 mg 1 tab daily. Patient should follow-up with Dr. Sandoval in one week. GENERAL: Well-appearing, well-nourished and in no acute distress. NECK: Supple without JVD or thyromegaly. LUNGS: Breath sounds clear to auscultation bilaterally. Respiration equal and unlabored. No wheezes, rales or rhonchi. HEART: Regular rate and rhythm without murmurs, rubs or gallops. S1 and S2 heard. EXTREMITIES: Normal range of motion, no edema. No clubbing or cyanosis. Peripheral pulses intact and strong. VITALS: Temp 98.1, pulse 60, respirations 20, blood pressure 105/63, O2 saturation 100% on room air TELEMETRY: Normal sinus rhythm IMPRESSION/PLAN: 1. Chest pain-acute coronary syndrome has been ruled out. Patient may be discharged home today. Continue aspirin 81 mg daily. Continue atorvastatin 20 mg daily. Patient should follow-up with cardiology within one week post discharge. Objective - Vital Signs Vital signs: Vital Signs Temp 98.1 F 05/28/21 07:00 Pulse 60 05/28/21 07:00 Resp 20 05/28/21 07:00 BP 105/63 05/28/21 07:00 Pulse Ox 100 05/28/21 07:00 Intake & Output 05/27/21 05/28/21 05/28/21 18:59 06:59 18:59 Intake Total 236 118 Balance 236 118 Intake: Oral 236 118 Other: Voiding Method Toilet Toilet # Voids 2 2 # Bowel Movements 0 0 - Labs CBC & Chem 7: 05/27/21 07:10 05/27/21 07:10
== END 2021-05-28 12:13 | disposition home or self-care (01) ==
LOC: EC 13:46 → 6NMEDSUR 17:27
PROVIDERS: ADMIT Internal Medicine; ATTEND Internal Medicine
DX: R07.89 Other chest pain (principal); I08.1 Rheumatic disorders of both mitral and tricuspid valves; R94.31 Abnormal electrocardiogram [ECG] [EKG]; R00.1 Bradycardia, unspecified; G40.909 Epilepsy, unspecified, not intractable, without status epilepticus; M19.90 Unspecified osteoarthritis, unspecified site; R06.02 Shortness of breath; R11.0 Nausea; F17.200 Nicotine dependence, unspecified, uncomplicated; Z79.899 Other long term (current) drug therapy; Z90.49 Acquired absence of other specified parts of digestive tract; Z98.890 Other specified postprocedural states; Z82.49 Family history of ischemic heart disease and other diseases of the circulatory system
CPT/HCPCS: 96366 ×3; 96376; 96365; 99291; 36415; 93005; 93306; 83880; 80053; 80048; 83735; 84484 ×2; 85025 ×2; 85610 ×2; 85730; 71046; G0378 ×3; J1644 ×2

== ENCOUNTER → 2022-08-15 | Outpatient (CLI) | payer MEDICARE ==
--- NOTE | 2022-08-15 13:37 | XR ---
EXAMINATION TYPE: XR hand limited LT DATE OF EXAM: 08/15/2022 1:11 PM INDICATION: Patient age:Male; 67 years old; Reason for study: M79.642; COMPARISON: None TECHNIQUE: Frontal, lateral and oblique views of the left hand were obtained. FINDINGS: Multifocal osteoarthrosis changes with most pronounced in the interphalangeal joints. Degen eration is worse at the first digit carpometacarpal joint. Normal alignment of the visualized joints. No acute osseous pathology is identified. No evidence of soft tissue swelling. IMPRESSION: No acute osseous pathology. Multifocal osteoarthrosis worse at the first digit carpal metacarpal joint.
== END | disposition home or self-care (01) ==
LOC: RADXRMAIN 12:54
PROVIDERS: ATTEND Internal Medicine
DX: M18.12 Unilateral primary osteoarthritis of first carpometacarpal joint, left hand (principal)

== ENCOUNTER → 2023-06-07 | Outpatient (CLI) | payer MEDICARE ==
--- NOTE | 2023-06-07 11:52 | MR ---
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 TECHNIQUE: Multi planar, multi sequence imaging was performed utilizing: T1-weighted, T2-weighted, an d turbo inversion recovery imaging of the cervical spine. IV Contrast: cc (none if empty) FINDINGS: Alignment: The cervical vertebral bodies have preserved heights. Alignment is within normal limits gi adriano patient positioning. Bones: Postsurgical changes of the spine with moderate narrowing at the level of C3. Mild degeneratio n changes with facet and uncovertebral joint arthropathy and osteophyte formation. Cord: Abnormal cord signal at the level of C3 as well as more inferiorly at the level of C5. The spin al cord is unremarkable with regards to their signal intensity and morphology. Discs: Multilevel disc desiccation is present. Surgically absent discs in the upper cervical spine. C2-C3: Moderate spinal canal narrowing secondary to posterior nondisplaced C3 vertebrae. Mild neural foraminal stenosis at this level with uncovertebral joint arthropathy. C3-C4: Moderate spinal canal stenosis secondary to posterior displacement C3 vertebrae. Bilateral fac et and uncovertebral joint arthropathy are present with mild to moderate bilateral neural foraminal s tenosis. C4-C5: A osteophyte is present with mild spinal canal stenosis. Bilateral facet and uncovertebral ginette int arthropathy are present with moderate to severe right and moderate left neural foraminal stenosis . C5-C6: A osteophyte is present with mild spinal canal stenosis. Bilateral facet and uncovertebral ginette int arthropathy are present with mild bilateral neural foraminal stenosis. C6-C7: No significant disc pathology. The spinal canal is patent. No neural foraminal stenosis. C7-T1: No significant disc pathology. The spinal canal is patent. No neural foraminal stenosis. Other: None. IMPRESSION: 1. Postsurgical changes with moderate spinal canal stenosis at the level of C3. There is abnormal co rd signal at C3 and C5 malacia. 2. Moderate facet and uncovertebral joint arthropathy worse at C4-C5 with moderate to severe right a nd moderate left neural foraminal stenosis.
== END | disposition home or self-care (01) ==
LOC: RADMRIMAIN 09:35
PROVIDERS: ATTEND Pain Medicine Pain Medicine
DX: M47.812 Spondylosis without myelopathy or radiculopathy, cervical region (principal); M54.12 Radiculopathy, cervical region
CPT/HCPCS: 72141

== ENCOUNTER 2023-08-06 22:07 | Emergency (ER) | payer MEDICARE, OTHER ==
[2023-08-06 22:45] VITALS: RESP 18
[2023-08-07 00:26] VITALS: BP 105/72; PULSE 90; TEMP 98.2
== END 2023-08-06 23:31 ==
LOC: EC 22:07
DX: Z02.83 Encounter for blood-alcohol and blood-drug test (principal)
CPT/HCPCS: 99499

== ENCOUNTER → 2023-12-06 | Outpatient (CLI) | payer MEDICARE ==
--- NOTE | 2023-12-06 11:24 | CTL ---
EXAMINATION TYPE: CT Low Dose Lung DATE OF EXAM: 12/06/2023 11:03 AM CLINICAL INDICATION: Male, 68 years old with history of Z12.2 screening; Current smoker, 1PPD x40yrs. , history of tobacco use. COMPARISON: None. TECHNIQUE: Multiple axial non-contrast scans were obtained from approximately the lung apices through the upper abdomen. Coronal and sagittal reformatted images were obtained. Low dose technique was uti lized. CT DLP: 121.5 mGycm, Automated exposure control for dose reduction was used. CT Contrast: Contrast used: None Oral contrast used: None FINDINGS: ======== Lack of intravenous contrast and low dose technique limits the evaluation of the vascular and soft ti ssue structures. LUNGS: No evidence of pulmonary fibrosis. No evidence of focal consolidation, pneumothorax or pleural effusion. Centrilobular emphysema changes. Nodules: RUL: 4 mm series 5 image 21 RML: Intrafissural lymph node series 5 image 37r measuring 4 mm RLL: None. MOMO: None. LLL: None. AIRWAY: Patent and unremarkable. HEART: Size within normal limits. MEDIASTINUM: No gross evidence of adenopathy. VASCULATURE: No aortic aneurysm. MUSCULOSKELETAL: No acute osseous abnormalities SOFT TISSUES/LYMPH NODES: Unremarkable. LOWER NECK: No significant findings. UPPER ABDOMEN: No significant findings. IMPRESSION: 1. No clinically significant pulmonary nodules. 2. Mild emphysema. CT LUNG RAD AND CT CHEST RECOMMENDATION: Lung-Rad 2 Benign Appearance or Behavior: Continue annual sc reening with LDCT in 12 months. S Modifier (other clinically significant findings): None Recommend smoking cessation (if current smoker), or continuation of smoking cessation (if prior smoke r). Annual screening for lung cancer with low-dose computed tomography is recommended in adults ages 55 to 77 years who have a 30 pack-year smoking history and currently smoke or have quit within the pa st 15 years. Screening should be discontinued once a person has not smoked for 15 years or develops a health problem that substantially limits life expectancy or the ability or willingness to have curat noa lung surgery. Lung rads 2021 [email or web address]
== END | disposition home or self-care (01) ==
LOC: RADCTMAIN 10:34
PROVIDERS: ATTEND Family Medicine
DX: Z12.2 Encounter for screening for malignant neoplasm of respiratory organs
CPT/HCPCS: 71271

== ENCOUNTER 2023-12-10 09:01 | Day surgery (SDC) | payer MEDICARE ==
[2023-12-06 11:54] VITALS: BMI 21.9
[2023-12-10 09:32] VITALS: TEMP 97.5
[2023-12-10] MEDS: IV FLUID CONTINUATION 1,000 ML IV ONE (09:44)
[2023-12-10] MEDS: LACTATED RINGERS 1,000 ML IV SCH (09:44)
[2023-12-10] MEDS ORDERED: PROPOFOL 10 MG/ML 20 ML VIAL IV ONE (09:55)
--- NOTE | 2023-12-10 10:21 | P.PCN ---
Date of Procedure: 12/10/23 Procedure(s) Performed: BRIEF HISTORY: Patient is a 68-year-old pleasant male scheduled for an elective colonoscopy as a part of painful colon cancer. PROCEDURE PERFORMED: Colonoscopy. PREOPERATIVE DIAGNOSIS: Screening for colon cancer. IV sedation per Anesthesia. PROCEDURE: After informed consent was obtained, the patient, was brought into the endoscopy unit. IV sedation was administered by Anesthesia under continuous monitoring. Digital rectal examination was normal. Initially the Olympus CF-160 flexible video colonoscope was then inserted in the rectum, gradually advanced into the cecum without any difficulty. Careful examination was performed as the scope was gradually being withdrawn. Ileocecal valve and the appendiceal orifice were visualized and appeared normal. Prep was poor in some areas of the colon. Thorough irrigation was performed. Mucosa of the cecum, ascending colon, tr ansverse colon, descending colon, sigmoid colon, and rectum appeared normal. Retroflexion was performed in the rectum and no lesions were seen. The patient tolerated the procedure well. IMPRESSION: Normal-appearing colon from rectum to cecum no evidence of colorectal neoplasia Poor prep in some areas of the colon. RECOMMENDATIONS: Findings of this examination were discussed with the patient a s well as his family. He was advised to have repeat screening colonoscopy in 10 years.
[2023-12-10 10:39] VITALS: BP 108/68; PULSE 80; RESP 16
== END 2023-12-10 11:21 | disposition home or self-care (01) ==
LOC: ORWHC2ENDO 09:01
PROVIDERS: ATTEND Internal Medicine Gastroenterology
DX: Z12.11 Encounter for screening for malignant neoplasm of colon (principal); G40.909 Epilepsy, unspecified, not intractable, without status epilepticus; M19.90 Unspecified osteoarthritis, unspecified site; F17.210 Nicotine dependence, cigarettes, uncomplicated; Z79.899 Other long term (current) drug therapy